=== PATIENT | male | born 1995 | race Caucasian/White ===

== ENCOUNTER 2022-06-14 17:29 | Emergency (ER) | payer MEDICARE, MEDICAID, SELFPAY ==
[2022-06-14 17:55] VITALS: BP 111/96; PULSE 97; RESP 22; TEMP 36.9; O2SAT 99; BMI 45.9
--- NOTE | 2022-06-14 18:04 | PC.NURSE ---
covid/flu swab to lab
[2022-06-14 18:45] LABS: PCR FLU A Negative PCR FLU A (Negative); PCR FLU B Negative PCR FLU B (Negative)
[2022-06-14 18:48] LABS: SARS PCR* Negative SARS-CoV-2 (Negative)
--- NOTE | 2022-06-14 19:34 | ED.GENADULT ---
HPI - General Adult General Chief complaint: Cough Stated complaint: Sore throat, Cough Time Seen by Provider: 06/14/22 18:01 Related Data Home Medications Medication Instructions Recorded Confirmed carvedilol 25 mg tablet mg 06/14/22 dapagliflozin 10 mg tablet mg 06/14/22 (Farxiga) sacubitril 97 mg-valsartan 103 mg tab 06/14/22 tablet (Entresto) sertraline 50 mg tablet mg 06/14/22 torsemide 20 mg tablet mg 06/14/22 Allergies Allergy/AdvReac Type Severity Reaction Status Date / Time tramadol Allergy Hives Verified 06/14/22 17:57 PFSH PFS Medical History (Updated 06/14/22 @ 19:35 by Edenilson Gutierrez MD) Heart failure Surgical History (Updated 06/14/22 @ 18:28 by Chanel Leung RN) H/O hand surgery History of surgery on lower extremity Social History Smoking Status: Never smoker How often do you have a drink containing alcohol: monthly or less AUDIT-C Alcohol total score: 1 Non-prescribed substance use: denies use Exam Const: Vital Signs, click to edit/add: Vital Signs - 24 hr 06/14/22 17:55 Temperature 98.4 F Pulse Rate [Right Pulse Oximeter] 97 Respiratory Rate 22 Blood Pressure [Le ft Upper Arm] 111/96 H Pulse Oximetry 99 Course Vital Signs Vital signs: Initial Vital Signs Temperature 98.4 F 06/14/22 17:55 Temperature Source Temporal Artery Scan 06/14/22 17:55 Pulse Rate 97 06/14/22 17:55 Respiratory Rate 06/14/22 17:55 Blood Pressure 111/96 H 06/14/22 17:55 Blood Pressure Mean 101 06/14/22 17:55 Blood Pressure Position Sitting 06/14/22 17:55 Pulse Oximetry 99 06/14/22 17:55 Oxygen Delivery Method 06/14/22 17:55 Vital Signs Temperature 98.4 F 06/14/22 17:55 Pulse Rate 97 06/14/22 17:55 Respiratory Rate 22 06/14/22 17:55 Blood Pressure 111/96 H 06/14/22 17:55 Pulse Oximetry 99 06/14/22 17:55 Temperature 98.4 F 06/14/22 17:55 Pulse Rate 97 06/14/22 17:55 Respiratory Rate 22 31/22 17:55 Blood Pressure 111/96 H 06/14/22 17:55 Pulse Oximetry 99 06/14/22 17:55 Medical Decision Making Lab Data Labs: Lab Results 06/14/22 Range/Units 17:50 SARS-CoV-2 (PCR) Negative SARS-CoV-2 (Negative) Influenza Type A (PCR) Negative PCR FLU A (Negative) Influenza Type B (PCR) Negative PCR FLU B (Negative) Discharge Plan Discharge Clinical Impression: Acute upper respiratory infection Patient Disposition: Home, Self-Care Additional Instructions: You may use cough medicine such as Robitussin DM as needed. Return to the emergency room if you get trouble breathing or fever. Your symptoms should improve this week. See your doctor if not better in 1 week Activity Level: Activity as Tolerated Prescriptions: No Action carvedilol 25 mg tablet 0RF torsemide 20 mg tablet 0RF sertraline 50 mg tablet 0RF Farxiga 10 mg tablet 0RF Entresto 97-103 mg tablet 0RF Label Comments: TAKE 1 TABLET BY MOUTH TWICE DAILY Follow Up/Referrals: Sharmin Raymundo PA [Primary Care Provider] - Stand Alone Forms: MyHealth Info Instructions
--- NOTE | 2022-06-14 19:36 | ED.GENADULT ---
HPI - General Adult General Chief complaint: Cough Stated complaint: Sore throat, Cough Time Seen by Provider: 06/14/22 18:01 Source: patient Limitations: no limitations History of Present Illness HPI narrative: 26-year-old male with heart failure with reduced ejection fraction presents with 3 day illness of cough and sore throat. He has not had fever or dyspnea or chest pain. He denies congestion or rhinorrhea. He has not had any known exposures to COVID. No other illness exposures. He does not smoke. No orthopnea. No increased edema. Medications include albuterol inhaler, carvedilol 25 b.i.d., dapagliflozin, Entresto, sertraline, torsemide Related Data Home Medications Medication Instructions Recorded Confirmed carvedilol 25 mg tablet mg 06/14/22 dapagliflozin 10 mg tablet mg 06/14/22 (Farxiga) sacubitril 97 mg-valsartan 103 mg tab 06/14/22 tablet (Entresto) sertraline 50 mg tablet mg 06/14/22 torsemide 20 mg tablet mg 06/14/22 Allergies Allergy/AdvReac Type Severity Reaction Status Date / Time tramadol Allergy Hives Verified 06/14/22 17:57 Review of Systems Narrative: Patient reports he has been doing well except for his 3 days of respiratory illness noted above PFSH [facility] Medical History ADHD Depression Heart failure Heart failure with reduced ejection fraction Hypertension Obesity Surgical History H/O hand surgery History of surgery on lower extremity Social History Smoking Status: Never smoker How often do you have a drink containing alcohol: monthly or less AUDIT-C Alcohol total score: 1 Non-prescribed substance use: denies use Exam Narrative: Exam Narrative: He is alert and appears in no distress. Pinnas external canals and TMs bilaterally normal. Nares normal. Oropharynx with small airway. Status post tonsillectomy. Neck is supple without mass or adenopathy. Respirations are clear to auscultation. No wheezing rales or rhonchi. Breathing is unlabored. Cardiovascular: S1, S2, regular rate and rhythm. Distant heart sounds. Extremities with 1+ edema bilaterally. Const: Vital Signs, click to edit/add: Vital Signs - 24 hr 06/14/22 17:55 Temperature 98.4 F Pulse Rate [Right Pulse Oximeter] 97 Respiratory Rate 22 Blood Pressure [Le ft Upper Arm] 111/96 H Pulse Oximetry 99 Course Course Hospital Course: Patient remained clinically stable during his emergency department stay. COVID testing negative. Vital Signs Vital signs: Initial Vital Signs Temperature 98.4 F 06/14/22 17:55 Temperature Source Temporal Artery Scan 06/14/22 17:55 Pulse Rate 97 06/14/22 17:55 Respiratory Rate 22 06/14/22 17:55 Blood Pressure 111/96 H 06/14/22 17:55 Blood Pressure Mean 101 06/14/22 17:55 Blood Pressure Position Sitting 06/14/22 17:55 Pulse Oximetry 99 06/14/22 17:55 Oxygen Delivery Method 06/14/22 17:55 Vital Signs Temperature 98.4 F 06/14/22 17:55 Pulse Rate 97 06/14/22 17:55 Respiratory Rate 22 06/14/22 17:55 Blood Pressure 111/96 H 06/14/22 17:55 Pulse Oximetry 99 06/14/22 17:55 Temperature 98.4 F 06/14/22 17:55 Pulse Rate 97 06/14/22 17:55 Respiratory Rate 22 06/14/22 17:55 Blood Pressure 111/96 H 06/14/22 17:55 Pulse Oximetry 99 06/14/22 17:55 Medical Decision Making Lab Data Labs: Lab Results 06/14/22 Range/Units 17:50 SARS-CoV-2 (PCR) Negative SARS-CoV-2 (Negative) Influenza Type A (PCR) Negative PCR FLU A (Negative) Influenza Type B (PCR) Negative PCR FLU B (Negative) Discharge Plan Discharge Clinical Impression: Acute upper respiratory infection Patient Disposition: Home, Self-Care Additional Instructions: You may use cough medicine such as Robitussin DM as needed. Return to the emergency room if you get trouble breathing or fever. Your symptoms should improve this week. See your doctor if not better in 1 week Activity Level: Activity as Tolerated Prescriptions: No Action carvedilol 25 mg tablet 0RF torsemide 20 mg tablet 0RF sertraline 50 mg tablet 0RF Farxiga 10 mg tablet 0RF Entresto 97-103 mg tablet 0RF Label Comments: TAKE 1 TABLET BY MOUTH TWICE DAILY Follow Up/Referrals: Sharmin Raymundo PA [Primary Care Provider] - Stand Alone Forms: MyHealth Info Instructions
== END 2022-06-14 20:12 | disposition home or self-care (01) ==
PROVIDERS: Family Medicine; Emergency Provider Family Medicine; PCP Physician Assistant
DX: J06.9 Acute upper respiratory infection, unspecified (principal)
CPT/HCPCS: 87502; 87635; 99283

== ENCOUNTER 2022-10-26 20:51 | Emergency (ER) | payer MEDICARE, MEDICAID, SELFPAY ==
[2022-10-26 21:19] VITALS: BP 125/88; PULSE 105; RESP 18; TEMP 36.7; O2SAT 99; BMI 46.6
--- NOTE | 2022-10-26 21:33 | ED.SKABFB ---
HPI - Skin/Abscess/Foreign Bdy General Chief complaint: Skin/Abscess/Foreign Body Stated complaint: Foreign object on bottom of L foot Time Seen by Provider: 10/26/22 21:27 History of Present Illness HPI narrative: Pt is a 27 year old woman who presents with pain on the plantar aspect of his left foot at a wart site that has previously been treated with cryotherapy. Pt has swelling around the wart site consistent with the preliminary formation of a blister from treatment. The wart appears to be 1.5 cm in diameter with a total diameter of swelling and blister of 2.5 cm. No surrounding erythema. No fever or chills. Pts pain is moderate on confined to the blister site. Related Data Home Medications Medication Instructions Recorded Confirmed carvedilol 25 mg tablet mg 06/14/22 dapagliflozin 10 mg tablet mg 06/14/22 (Farxiga) sacubitril 97 mg-valsartan 103 mg tab 06/14/22 tablet (Entresto) sertraline 50 mg tablet mg 06/14/22 torsemide 20 mg tablet mg 06/14/22 Allergies Allergy/AdvReac Type Severity Reaction Status Date / Time tramadol Allergy Hives Verified 06/14/22 17:57 Review of Systems Status of ROS: Reports: 6 or more systems reviewed and unremarkable except as noted in History and below PFSH PFSH Medical History ADHD Depression Heart failure Heart failure with reduced ejection fraction Hypertension Obesity Surgical History H/O hand surgery History of surgery on lower extremity Social History Smoking Status: Never smoker How often do you have a drink containing alcohol: monthly or less AUDIT-C Alcohol total score: 1 Non-prescribed substance use: denies use Exam Narrative: Exam Narrative: EXAM GENERAL: Patient appears comfortable and well. Obese EYES: No scleral icterus. ENT: Tympanic membranes and oropharynx normal. THYROID: no thyroid nodules or thyromegaly. LYMPH: No supraclavicular or cervical lymphadenopathy. SKIN: Planters were with surrounding swelling as above. EXT: No dependent lower extremity pedal edema. HEART: Regular rate and rhythm with no murmurs, rubs, or gallops. LUNGS: Clear to auscultation bilaterally with no crackles or wheezes. ABD: Soft, non tender, non distended. PSYCH: Good eye contact, speech is not pressured. Const: Vital Signs, click to edit/add: Vital Signs - 24 hr 10/26/22 21:19 Temperature 98.0 F Pulse Rate [Right Pulse Oximeter] 105 H Respiratory Rate 18 Blood Pressure [Ri ght Upper Arm] 125/88 Pulse Oximetry 99 Oxygen Delivery Me thod Room Air Course Course Hospital Course: Pt seen and examined. Vital Signs Vital signs: Initial Vital Signs Temperature 98.0 F 10/26/22 21:19 Temperature Source Temporal Artery Scan 10/26/22 21:19 Pulse Rate 105 H 10/26/22 21:19 Respiratory Rate 18 10/26/22 21:19 Blood Pressure 125/88 10/26/22 21:19 Blood Pressure Mean 100 10/26/22 21:19 Blood Pressure Position Sitting 10/26/22 21:19 Pulse Oximetry 99 10/26/22 21:19 Oxygen Delivery Method 10/26/22 21:19 Vital Signs Temperature 98.0 F 10/26/22 21:19 Pulse Rate 105 H 10/26/22 21:19 Respiratory Rate 18 10/26/22 21:19 Blood Pressure 125/88 10/26/22 21:19 Pulse Oximetry 99 10/26/22 21:19 Oxygen Delivery Method 10/26/22 21:19 Temperature 98.0 F 10/26/22 21:19 Pulse Rate 105 H 10/26/22 21:19 Respiratory Rate 18 10/26/22 21:19 Blood Pressure 125/88 10/26/22 21:19 Pulse Oximetry 99 10/26/22 21:19 Oxygen Delivery Method 10/26/22 21:19 MDM - Skin/Abscess/Foreign Bdy MDM Narrative Medical decision making narrative: Pt presents with pain at plantar wart freezing site following treatment. Preliminary blister formation noted. At this time, we will not provide any further intervention as the blister is likely to come to conclusion without interventions. I did recommend follow up with dermatology to ensure complete healing. At this time, pt will be treated symptomatically. Differential Diagnosis Differential diagnosis: Likely abscess of skin or subcutaneous tissue, urticaria, cellulitis and contact dermatitis Medical Records Attestation: I reviewed the patient's medical records. Discharge Plan Discharge Clinical Impression: Plantar wart, left foot Patient Disposition: Home, Self-Care Condition: Stable Instructions: Plantar Wart (ED) Additional Instructions: Follow up with dermatology later this week to discuss next steps. Activity Level: No Restrictions Discharge Diet: Regular Prescriptions: No Action carvedilol 25 mg tablet torsemide 20 mg tablet sertraline 50 mg tablet Farxiga 10 mg tablet Entresto 97-103 mg tablet Label Comments: TAKE 1 TABLET BY MOUTH TWICE DAILY Follow Up/Referrals: Sharmin Raymundo PA [Primary Care Provider] - Stand Alone Forms: [employer] Info Instructions
[2022-10-26 22:11] VITALS: BP 125/88; PULSE 105; RESP 18; TEMP 36.7
== END 2022-10-26 22:10 | disposition home or self-care (01) ==
LOC: ED 21:42
PROVIDERS: Emergency Provider Internal Medicine; PCP Physician Assistant
DX: B07.0 Plantar wart (principal)
CPT/HCPCS: 99283

== ENCOUNTER 2023-02-22 06:28 | Emergency (ER) | payer MEDICARE, MEDICAID, SELFPAY ==
[2023-02-22 06:38] VITALS: BP 164/100; PULSE 84; RESP 22; TEMP 36.9; O2SAT 99; BMI 45.9
--- NOTE | 2023-02-22 06:57 | CRLHL7_ITS ---
For Patients: As a result of the Century Cures Act, medical imaging exams and procedure reports are released immediately into your electronic medical record. You may view this report before your referring provider. If you have questions, please contact your health care provider. INDICATION: Chest pain. TECHNIQUE: Chest 2 views. COMPARISON: None. FINDINGS: Cardiovascular and mediastinum: Heart size and vasculature are normal in caliber and appearance. Lungs and pleural spaces: Lungs are clear. No sign of infiltrate or mass. No sign of pleural effusion. No pneumothorax. Bones and soft tissues: Degenerative spondylosis. No acute findings. IMPRESSION: No acute findings. Dictated by Scottie Magallon MD @ 02/22/2023 7:20:08 AM (Electronically Signed)
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
== END 2023-02-22 07:30 | disposition home or self-care (01) ==
PROVIDERS: Emergency Provider Emergency Medicine; PCP Physician Assistant
DX: S29.9XXA Unspecified injury of thorax, initial encounter (principal)
CPT/HCPCS: 71046; 99283; 99284

== ENCOUNTER 2023-10-31 14:37 | Emergency (ER) | payer MEDICARE, OTHER, SELFPAY ==
[2023-10-31 14:40] VITALS: BP 135/98; PULSE 128; RESP 18; TEMP 36.8; O2SAT 96; BMI 50.9
--- NOTE | 2023-10-31 14:53 | ED.GENADULT ---
HPI - General Adult General Chief complaint: Dental/Oral/Mouth Injury/Pain Stated complaint: open wounds in mouth Time Seen by Provider: 10/31/23 14:38 Source: patient Mode of arrival: ambulatory Limitations: no limitations History of Present Illness HPI narrative: 28-year-old male presenting today with sores on his tongue. They have been there for about 2 days. They are not getting better. He denies chills, states that he had a fever earlier today. He took some Tylenol and now feels better. He denies rashes anywhere else on his body. He is not achy. He denies headache, cough, chest pain or abdominal discomfort. Denies any recent traveling. He has been able to eat and drink although it is uncomfortable. His past medical history significant for hypertension, ADHD, heart failure, morbid obesity. Related Data Home Medications Medication Instructions Recorded Confirmed carvedilol 25 mg tablet 25 mg PO BID 06/14/22 10/31/23 dapagliflozin propanediol 10 mg 10 mg PO DAILY 06/14/22 10/31/23 tablet (Farxiga) sacubitril 97 mg-valsartan 103 mg 1 tab PO BID 06/14/22 10/31/23 tablet (Entresto) torsemide 20 mg tablet 20 mg PO DAILY 06/14/22 10/31/23 sertraline 100 mg tablet 100 mg PO DAILY 02/22/23 10/31/23 Previous Rx's Medication Instructions Recorded Magic Mouthwash 5 ml PO DIRECTED #120 mL 10/31/23 (Lidocaine/Benadryl/Maalox) 120 mL suspension Allergies Allergy/AdvReac Type Severity Reaction Status Date / Time tramadol Allergy Mild Hives Verified 10/31/23 14:43 NSAIDS (Non-Steroidal AdvReac Unknown Verified 10/31/23 14:43 Anti-Inflamma Review of Systems Status of ROS: Reports: 10 or more systems reviewed and unremarkable except as noted in History and below [facility] Medical History Obesity ?E66.9 - Obesity, unspecified (ICD-10) Hypertension ?I10 - Essential (primary) hypertension (ICD-10) ADHD ?F90.9 - Attention-deficit hyperactivity disorder, unspecified type (ICD-10) Depression ?F32.A - Depression, unspecified (ICD-10) Heart failure with reduced ejection fraction ?I50.20 - Unspecified systolic (congestive) heart failure (ICD-10) Heart failure ?I50.9 - Heart failure, unspecified (ICD-10) Surgical History H/O hand surgery ?Z98.890 - Other specified postprocedural states (ICD-10) History of surgery on lower extremity ?Z98.890 - Other specified postprocedural states (ICD-10) Social History Smoking Status: Never smoker Do you use any of these nicotine containing products: None Second hand tobacco smoke exposure: No How often do you have a drink containing alcohol: monthly or less AUDIT-C Alcohol total score: 1 Non-prescribed substance use: denies use Exam Narrative: Exam Narrative: Morbidly obese male in no acute distress. Alert and oriented. Answers questions appropriately. Mood and affect are appropriate. Thoughts are goal oriented and rational. No tangential or magical thinking noted. Patient speaks in full sentences without needing to catch his breath. Speech is not slurred or pressured. Voice sounds normal. HEENT: Normocephalic atraumatic. Pupils are equally round reactive to light. Extraocular muscles are intact. Conjunctivae are moist without any icterus noted. Moist mucous membranes. Posterior pharynx is normal. Neck is soft without any lymphadenopathy or thyromegaly. No masses are appreciated. Patient does have multiple ulcerations on the tongue. No ulcerations noted on the gingiva, buccal mucosa, soft or hard palate. There is no rash on the lips. Cardiovascular: Heart is regular rate and rhythm. I did recheck his pulse and it was 105. Lungs: Clear to auscultation bilaterally no wheezes rhonchi or rales are appreciated. Skin: Well perfused without any obvious rashes. There is no rash on the palms or soles of the feet. Const: Vital Signs, click to edit/add: Vital Signs - 24 hr 10/31/23 14:40 Temperature 98.3 F Pulse Rate [Pulse Oximeter] 128 H Respiratory Rate 18 Blood Pressure [Ri ght Upper Arm] 135/98 H Pulse Oximetry 96 Oxygen Delivery Me thod Room Air Course Vital Signs Vital signs: Initial Vital Signs Temperature 98.3 F 10/31/23 14:40 Temperature Source Temporal Artery Scan 10/31/23 14:40 Pulse Rate 128 H 10/31/23 14:40 Respiratory Rate 18 10/31/23 14:40 Blood Pressure 135/98 H 10/31/23 14:40 Blood Pressure Mean 110 H 10/31/23 14:40 Blood Pressure Position Sitting 10/31/23 14:40 Pulse Oximetry 96 10/31/23 14:40 Oxygen Delivery Method Room Air 10/31/23 14:40 Vital Signs Temperature 98.3 F 10/31/23 14:40 Pulse Rate 128 H 10/31/23 14:40 Respiratory Rate 18 10/31/23 14:40 Blood Pressure 135/98 H 10/31/23 14:40 Pulse Oximetry 96 10/31/23 14:40 Oxygen Delivery Method Room Air 10/31/23 14:40 Temperature 98.3 F 10/31/23 14:40 Pulse Rate 128 H 10/31/23 14:40 Respiratory Rate 18 10/31/23 14:40 Blood Pressure 135/98 H 10/31/23 14:40 Pulse Oximetry 96 10/31/23 14:40 Oxygen Delivery Method Room Air 10/31/23 14:40 Medical Decision Making MDM Narrative Medical decision making narrative: 28-year-old male with ulcerations of the tongue, do appear to be aphthous ulcers although I do not see any on the buccal mucosa of the mouth, just on the tongue. Could be related to a viral infection given his recent episode of elevated temperatures at home. At this time we will treat with continue Tylenol which does seem to help. We will also add magic mouthwash. I do want him to follow up with primary care provider in approximately 1 week to have a recheck to see if it is getting worse or better. May require a biopsy if things are not improving. Patient is in agreement with everything we discussed had no other questions. Discharge Plan Discharge Additional Instructions: At this time, recommend continue Tylenol use as needed for fevers or discomfort. Use magic mouthwash as needed for discomfort of the mouth. If you feel like you are not improving or certainly if you are getting worse instead of better over the next several days, return to the ER. Otherwise, you should have a follow-up appointment scheduled with your primary care provider in the next 10-7 days. Prescriptions: New Magic Mouthwash (Lidocaine/Benadryl/Maalox) 120 mL suspension 5 ml PO DIRECTED Qty: 120 0RF Rx Instructions: Lidocaine Viscous 2 % mucosal solution 40 mL; Maalox 200 mg-200 mg-20 mg/5 mL oral suspension 40 mL; Benadryl 12.5 mg/5 mL oral elixir 40 mL; Per 120 mL SWISH AND SPIT. MAY COMPOUND IF FIRST PRODUCT IS NOT AVAILABLE. No Action carvedilol 25 mg tablet 25 mg PO BID torsemide 20 mg tablet 20 mg PO DAILY Farxiga 10 mg tablet 10 mg PO DAILY Entresto 97-103 mg tablet 1 tab PO BID Patient Comments: TAKE 1 TABLET BY MOUTH TWICE DAILY sertraline 100 mg tablet 100 mg PO DAILY Follow Up/Referrals: Sharmin Raymundo PA [Referring] - Stand Alone Forms: [facility] Info Instructions
[2023-10-31 15:01] VITALS: BP 142/117; PULSE 124; O2SAT 93
[2023-10-31 15:02] VITALS: PULSE 120; O2SAT 95
== END 2023-10-31 15:10 | disposition home or self-care (01) ==
LOC: ED 14:58
PROVIDERS: Emergency Provider Family Medicine; PCP Family Medicine
DX: K12.0 Recurrent oral aphthae (principal)
CPT/HCPCS: 95992; 99283